=== PATIENT | female | born 1975 | race Caucasian/White ===

== ENCOUNTER → 2022-05-31 | Outpatient (CLI) | payer BC ==
[2022-05-31 13:10] VITALS: BP 94/62; PULSE 51; TEMP 98.6; BMI 41.3
--- NOTE | 2022-05-31 13:53 | P.HPBAR ---
Bariatric H&P - History & Physicial H&P Date: 05/31/22 History & Physicial: Visit/CC: new patient Patient initial contact: Initial weight: Initial weight in pounds: Height: 5 ft 5 in Initial BMI: Last weight: Current weight: 112.672 kg Current weight in pounds: 248.40 Current BMI: 41.3 [place] body weight (based on NIH guidelines): 56.699 kg Excess body weight loss: The patient is a 47 year-old F who presents for Bariatric Assessment. Has acid reflux for 2 years. She is on medications. She has friends who has the sleeve. She takes omeprazole regularly. Has SVT. Father has kidney stone. Still has her gallbladder. No blood clots in family. Past Medical History Past Medical History: Hyperlipidemia, Rheumatoid Arthritis (RA), Supraventricular Tachycardia (SVT) History of Any Multi-Drug Resistant Organisms: None Reported Past Surgical History: Uterine Ablation Additional Past Surgical History / Comment(s): Fallopian tubes removed Past Anesthesia/Blood Transfusion Reactions: No Reported Reaction Past Psychological History: Anxiety Smoking Status: Former smoker, Vaper Past Alcohol Use History: Occasional Additional Past Alcohol Use History / Comment(s): Quit cigarette smoking 1 year ago, currently vaping Past Drug Use History: None Reported Surgical - Exam Vital Signs Temp Pulse BP 98.6 F 51 L 94/62 05/31/22 13:00 05/31/22 13:00 05/31/22 13:00 Bariatric Checklist Checklist: Plan: Checklist: EGD: 1. Hiatal hernia: 2. H. Pylori: HgbA1c: Vitamin D: Smoking: Primary care physician referral: Idalia Judd NP Psychiatry clearance: Cardiology clearance: Sleep study: Diet journal: VTE risk score: VTE risk level: Rehab needs at discharge:
== END ==
LOC: BARWHC3 12:12
PROVIDERS: ATTEND Surgery Plastic and Reconstructive Surgery
DX: E66.01 Morbid (severe) obesity due to excess calories (principal); Z87.891 Personal history of nicotine dependence; E78.5 Hyperlipidemia, unspecified; M06.9 Rheumatoid arthritis, unspecified; I47.1 Supraventricular tachycardia; Z68.41 Body mass index [BMI] 40.0-44.9, adult; Z88.2 Allergy status to sulfonamides
CPT/HCPCS: 99202

== ENCOUNTER 2022-07-10 06:53 | Day surgery (SDC) | payer BC ==
[2022-07-06 14:40] VITALS: BMI 41.3
[~2022-07-10 06:53] MED LIST: LACTATED RINGERS 1,000 ML IV SCH; LIDOCAINE 1% (10MG/ML) FOR IV START INTRADERMA PRN
--- NOTE | 2022-07-10 07:03 | P.GSHP ---
History of Present Illness H&P Date: 07/10/22 CHIEF COMPLAINT: GERD HISTORY OF PRESENT ILLNESS: The patient is a 47-year-old female who presents reports gastroesophageal reflux disease. Upper endoscopy was offered for further evaluation and management. PAST MEDICAL HISTORY: Please see list. PAST SURGICAL HISTORY: Please see list. MEDICATIONS: Please see list. ALLERGIES: Please see list. SOCIAL HISTORY: No illicit drug use FAMILY HISTORY: No reports of Crohn disease or ulcerative colitis. REVIEW OF ORGAN SYSTEMS: CONSTITUTIONAL: No reports of fevers or chills. GI: Denies any blood in stools or constipation. PHYSICAL EXAM: VITAL SIGNS: Stable GENERAL: Well-developed and pleasant in no acute distress. HEENT: No scleral icterus. Extraocular movements grossly intact. Moist buccal mucosa. NECK: Supple without lymphadenopathy. CHEST: Unlabored respirations. Equal bilateral excursions. CARDIOVASCULAR: Regular rate and rhythm. Distal 2+ pulses. ABDOMEN: Soft, nondistended. MUSCULOSKELETAL: No clubbing, cyanosis, or edema. ASSESSMENT: 1. Gastroesophageal reflux disease PLAN: 1. Recommend proceeding with an upper endoscopy Past Medical History Past Medical History: Hyperlipidemia, Rheumatoid Arthritis (RA), Supraventricular Tachycardia (SVT) History of Any Multi-Drug Resistant Organisms: None Reported Past Surgical History: Uterine Ablation Additional Past Surgical History / Comment(s): Fallopian tubes removed Past Anesthesia/Blood Transfusion Reactions: No Reported Reaction Smoking Status: Current every day smoker, Vaper Medications and Allergies Home Medications Medication Instructions Recorded Confirmed Type ALPRAZolam [Xanax] 0.25 mg PO BID PRN 05/31/22 07/06/22 History Adalimumab [Humira Pen] 40 mg SQ QMONTHLY 05/31/22 07/06/22 History Cetirizine HCl [Zyrtec] 10 mg PO DAILY 05/31/22 07/06/22 History Cholecalciferol (Vitamin D3) 125 mcg PO DAILY 05/31/22 07/06/22 History [Vitamin D3 (125 MCG = 5,000 IU)] DULoxetine HCL [Cymbalta] 30 mg PO DAILY 05/31/22 07/06/22 History Ezetimibe [Zetia] 10 mg PO DAILY 05/31/22 07/06/22 History Fluticasone Nasal [place] [Flonase 2 spray EA NOSTRIL DAILY 05/31/22 07/06/22 History Nasal [place]] Furosemide [Lasix] 20 mg PO DAILY 05/31/22 07/06/22 History Omeprazole 20 mg PO DAILY 05/31/22 07/06/22 History Rosuvastatin Calcium [Crestor] 40 mg PO DAILY 05/31/22 07/06/22 History Verapamil HCl [Verapamil ER] 180 mg PO HS 05/31/22 07/06/22 History atenoloL [Tenormin] 50 mg PO DAILY 05/31/22 07/06/22 History Allergies Allergy/AdvReac Type Severity Reaction Status Date / Time Sulfa (Sulfonamide Allergy Unknown Verified 07/06/22 14:20 Antibiotics) Childhood
[2022-07-10 07:19] VITALS: TEMP 97.7
[2022-07-10] MEDS ORDERED: LIDOCAINE 2% INJ 20 MG/ML (2 ML VIAL) ONE (08:02)
[2022-07-10] MEDS ORDERED: PROPOFOL 10 MG/ML 20 ML VIAL IV ONE (08:02)
[2022-07-10 08:32] VITALS: BP 127/78; PULSE 57; RESP 18
--- NOTE | 2022-07-10 08:48 | P.PCN ---
Date of Procedure: 07/10/22 Description of Procedure: PREOPERATIVE DIAGNOSIS: Gastroesophageal reflux disease. Morbid obesity. POSTOPERATIVE DIAGNOSIS: Gastroesophageal reflux disease. Morbid obesity. Gastritis. OPERATION: Esophagogastroduodenoscopy with biopsies along antrum and duodenum SURGEON: Kelin Cabello MD ANESTHESIA: MAC. INDICATIONS: The patient is a 47-year-old female who presents with reflux disease. Benefits and risks of the procedure were described. Informed consent was obtained. DESCRIPTION: The patient was brought into the endoscopy suite and laid in the left lateral decubitus position. An Olympus gastroscope was passed along the posterior oropharynx down to the distal esophagus where the squamocolumnar junction was encountered at 36 cm from the incisors. The stomach was entered and no bile reflux was found. Additional findings are listed below. Biopsies with cold forceps were obtained of the antrum. The first through third portion of the duodenum was examined. Retroflexion of the scope confirmed Hill grade 2 lower esophageal valve. The squamocolumnar junction demonstrated LA grade B erosive esophagitis. The stomach was desufflated. The patient tolerated the procedure well. FINDINGS: Squamocolumnar junction 36 cm from the incisors. Diaphragmatic hiatus at 36 cm. Hill grade 2 lower esophageal valve. LA grade A erosive esophagitis. Biopsies of the duodenum Chronic gastritis with biopsies obtained RECOMMENDATIONS: Upper endoscopy as needed. Plan - Discharge Summary Discharge Rx Participant: No New Discharge Prescriptions: Continue Furosemide [Lasix] 20 mg PO DAILY Ezetimibe [Zetia] 10 mg PO DAILY Cetirizine HCl [Zyrtec] 10 mg PO DAILY Adalimumab [Humira Pen] 40 mg SQ QMONTHLY atenoloL [Tenormin] 50 mg PO DAILY ALPRAZolam [Xanax] 0.25 mg PO BID PRN PRN Reason: Anxiety Verapamil HCl [Verapamil ER] 180 mg PO HS Omeprazole 20 mg PO DAILY Fluticasone Nasal [place] [Flonase Nasal [place]] 2 spray EA NOSTRIL DAILY Rosuvastatin Calcium [Crestor] 40 mg PO DAILY DULoxetine HCL [Cymbalta] 30 mg PO DAILY Cholecalciferol (Vitamin D3) [Vitamin D3 (125 MCG = 5,000 IU)] 125 mcg PO DAILY Discharge Medication List ALPRAZolam [Xanax] 0.25 mg PO BID PRN 05/31/22 [History] Adalimumab [Humira Pen] 40 mg SQ QMONTHLY 05/31/22 [History] Cetirizine HCl [Zyrtec] 10 mg PO DAILY 05/31/22 [History] Cholecalciferol (Vitamin D3) [Vitamin D3 (125 MCG = 5,000 IU)] 125 mcg PO DAILY 05/31/22 [History] DULoxetine HCL [Cymbalta] 30 mg PO DAILY 05/31/22 [History] Ezetimibe [Zetia] 10 mg PO DAILY 05/31/22 [History] Fluticasone Nasal [place] [Flonase Nasal [place]] 2 spray EA NOSTRIL DAILY 05/31/22 [History] Furosemide [Lasix] 20 mg PO DAILY 05/31/22 [History] Omeprazole 20 mg PO DAILY 05/31/22 [History] Rosuvastatin Calcium [Crestor] 40 mg PO DAILY 05/31/22 [History] Verapamil HCl [Verapamil ER] 180 mg PO HS 05/31/22 [History] atenoloL [Tenormin] 50 mg PO DAILY 05/31/22 [History] Follow up [facility]ment(s[facility] [place] [facility] Patient Instructions/Handouts: *Surgery [facility] - (Anesthesia) Discharge Instructions Outpatient Surgery, Gastritis (DC), Diet for Stomach Ulcers and Ga stritis (GEN), Upper Endoscopy (DC) Discharge Disposition: HOME SELF-CARE
== END 2022-07-10 08:53 | disposition home or self-care (01) ==
LOC: ORWHC2ENDO 06:53
PROVIDERS: ATTEND Surgery Plastic and Reconstructive Surgery
DX: K21.00 Gastro-esophageal reflux disease with esophagitis, without bleeding (principal); K29.50 Unspecified chronic gastritis without bleeding; K44.9 Diaphragmatic hernia without obstruction or gangrene; E78.5 Hyperlipidemia, unspecified; M06.9 Rheumatoid arthritis, unspecified; E66.01 Morbid (severe) obesity due to excess calories; Z90.79 Acquired absence of other genital organ(s); F17.290 Nicotine dependence, other tobacco product, uncomplicated; Z79.899 Other long term (current) drug therapy; Z88.1 Allergy status to other antibiotic agents; Z88.2 Allergy status to sulfonamides; I48.91 Unspecified atrial fibrillation; F41.9 Anxiety disorder, unspecified
CPT/HCPCS: 81025; 43239; J2704; J2001; 88305

== ENCOUNTER → 2022-07-10 | Outpatient (CLI) | payer BC ==
[2022-07-10 10:19] LABS: INR 0.9 (<1.2); Partial Thromboplastin Time 24.2 sec (22.0-30.0)
[2022-07-10 16:09] LABS: HCT 41.8 %; HGB 13.1 d/dL; MCH 27.9 pg; MCHC 31.3 d/dL; MCV 88.9 FL; Mean Platelet Volume 10.4 FL; NRBC Per 100 WBC 0 X 10*3/uL; Platelet Count 290 X 10*3/uL; RDW 12.2 %; WBC 7.69 X 10*3/uL
[2022-07-10 16:17] LABS: % Iron Saturation 21.81; ALT 27 U/L; AST 18 U/L; Albumin 4.2 d/dL; Albumin/Globulin Ratio 1.75 Ratio; Alkaline Phosphatase 63 U/L; BUN/Creat Ratio 17.71 Ratio; Blood Urea Nitrogen 12.4 mg/dL; Calcium 9.1 mg/dL; Carbon Dioxide 25.9 mmol/L; Chloride 100 mmol/L; Chol/HDL Ratio 2.81 Ratio; Globulin 2.4 d/dL; Glucose 96 mg/dL; Iron 77 UG/DL; LDL Cholesterol,Calculated 84.9 mg/dL; Magnesium 2.2 mg/dL; Phosphorus 3.3 mg/dL; Potassium 4.4 mmol/L; Sodium 138 mmol/L; Total Iron Binding Capacity 353 UG/DL; Total Protein 6.6 d/dL; VLDL Calculation 13.74 mg/dL
[2022-07-10 16:44] LABS: Prealbumin 24.4 mg/dL
[2022-07-10 22:40] LABS: Ferritin 42 ng/mL
[2022-07-11 12:58] LABS: Zinc, Serum 86 ug/dL (60-130)
[2022-07-12 06:52] LABS: Vitamin A 50 ug/dL (38-106)
== END | disposition home or self-care (01) ==
LOC: LABWHC1 09:00
PROVIDERS: ATTEND Surgery Plastic and Reconstructive Surgery
DX: E66.01 Morbid (severe) obesity due to excess calories (principal); E89.1 Postprocedural hypoinsulinemia; D50.8 Other iron deficiency anemias; E44.0 Moderate protein-calorie malnutrition; E55.9 Vitamin D deficiency, unspecified; K74.1 Hepatic sclerosis; N19 Unspecified kidney failure; T56.894A Toxic effect of other metals, undetermined, initial encounter; Z71.51 Drug abuse counseling and surveillance of drug abuser
CPT/HCPCS: 36415; 80053; 80061; 80323; 82306; 82525; 82607; 82728; 82746; 83036; 83540; 83550; 83735; 83970; 84100; 84134; 84255; 84425; 84443; 84590; 84630; 85027; 85610; 85730; 93005

== ENCOUNTER → 2022-07-31 | Outpatient (CLI) | payer BC ==
[2022-07-31 11:19] VITALS: BMI 43.7
== END ==
LOC: BARWHC3 08:22
PROVIDERS: ATTEND Surgery Plastic and Reconstructive Surgery
DX: E66.01 Morbid (severe) obesity due to excess calories (principal); Z68.41 Body mass index [BMI] 40.0-44.9, adult; Z71.3 Dietary counseling and surveillance; Z88.2 Allergy status to sulfonamides
CPT/HCPCS: 97804

== ENCOUNTER → 2022-09-27 | Outpatient (CLI) | payer BC ==
[2022-09-27 19:42] LABS: Basophils # (A) 0.04 X 10*3/uL (0.00-0.10); Basophils % (A) 0.5 %; Eosinophils # (A) 0.16 X 10*3/uL (0.04-0.35); Eosinophils % (A) 1.8 %; HCT 43.6 % (37.2-46.3); HGB 13.7 d/dL (12.0-15.0); Lymphocytes # (A) 3.96 X 10*3/uL (0.90-5.00); Lymphocytes % (A) 45.4 %; MCH 27.8 pg (27.0-32.0); MCHC 31.4 d/dL (32.0-37.0); MCV 88.6 FL (80.0-97.0); Mean Platelet Volume 10.4 FL (9.5-12.2); Monocytes # (A) 0.82 X 10*3/uL (0.20-1.00); Monocytes % (A) 9.4 %; NRBC Per 100 WBC 0 X 10*3/uL (0.00-0.01); Neutrophils # (A) 3.72 X 10*3/uL (1.80-7.70); Neutrophils % (A) 42.7 %; Platelet Count 298 X 10*3/uL (140-440); RBC 4.92 X 10*6/uL (4.10-5.20); RDW 12.6 % (11.5-14.5); WBC 8.72 X 10*3/uL (4.50-10.00)
[2022-09-27 20:02] LABS: ALT 36 U/L (8-44); AST 28 U/L (13-35); Albumin 4.3 d/dL (3.8-4.9); Albumin/Globulin Ratio 1.79 Ratio (1.60-3.17); Alkaline Phosphatase 53 U/L (41-126); BUN/Creat Ratio 20.88 Ratio (12.00-20.00); Blood Urea Nitrogen 16.7 mg/dL (9.0-27.0); Calcium 9.4 mg/dL (8.7-10.3); Carbon Dioxide 25.8 mmol/L (21.6-31.8); Chloride 103 mmol/L (96-109); Globulin 2.4 d/dL (1.6-3.3); Glucose 79 mg/dL (70-110); Sodium 139 mmol/L (135-145); Total Bilirubin 0.8 mg/dL (0.3-1.2); Total Protein 6.7 d/dL (6.2-8.2)
== END | disposition home or self-care (01) ==
LOC: LABPAT 12:49
PROVIDERS: ATTEND Surgery Plastic and Reconstructive Surgery
DX: Z01.812 Encounter for preprocedural laboratory examination (principal); Z71.51 Drug abuse counseling and surveillance of drug abuser
CPT/HCPCS: 80053; 80323; 85025

== ENCOUNTER 2022-10-02 12:15 | Day surgery (SDC) | payer BC ==
--- NOTE | 2022-10-02 09:09 | P.GSHP ---
History of Present Illness H&P Date: 10/02/22 CHIEF COMPLAINT: Morbid obesity HISTORY OF PRESENT ILLNESS: Jackelin Slater is a 47-year-old female who comes with lifelong morbid obesity. As result of morbid obesity, she has developed hypertensive heart disease, hyperlipidemia, osteoarthritis of the hips and knees. She has completed medical supervised weight loss. She completed medical including cardiac assessment. She has completed psychological risk assessment. All surgical options were reviewed. She elected for sleeve gastrectomy At height of 5 feet 5 inches, her ideal body weight is 149 pounds. She comes in 262 pounds. Her body mass index is 44.1. She is 113 pounds overweight. PAST MEDICAL HISTORY: 1. Morbid obesity due to excess calories 2. Body mass index of 44.1 3. Osteoarthritis of the knees. 4. Osteoarthritis of the lower back. 5. Hypertensive heart disease. 6. Gastroesophageal reflux disease 7. Depressive disorder 8. Rheumatoid arthritis 9. Hyperlipidemia 10. Generalized anxiety disorder 11. Supraventricular tachycardia PAST SURGICAL HISTORY: 1. Upper endoscopy 2. Uterine ablation HOME MEDICATIONS: See list ALLERGIES: See list SOCIAL HISTORY: Past tobacco use. FAMILY HISTORY: No family history of ulcerative colitis disease or Crohn's disease. Family history of morbid obesity. No lupus in the family. No reports of stomach or esophageal cancer. REVIEW OF ORGAN SYSTEMS: CONSTITUTIONAL: At height of 5 feet 5 inches, her ideal body weight is 149 pounds. She comes in 262 pounds. Her body mass index is 44.1. She is 113 pounds overweight. HEENT: Denies any active troubles with vision or hearing. ENDOCRINE: Denies diabetes. Denies hypothyroidism. CARDIOVASCULAR: Past reports of palpitations or heart attacks or chest pain. RESPIRATORY: Has daytime somnolence. GASTROINTESTINAL: Denies any bright red blood per rectum. Has gastroesophageal reflux disease. MUSCULOSKELETAL: Has lower back pain and joint pain. Has osteoarthritis of the knees. NEURO: No headaches. No seizure disorders. PSYCH: Has depression. No suicidal ideation. Has anxiety disorder RHEUMATOLOGIC: No lupus. No rheumatoid arthritis. HEMATOLOGIC: Denies any abnormal bleeding or bruising. No personal history of DVTs. SKIN: Has rash. No skin cancer. PHYSICAL EXAM: VITAL SIGNS: Height 5 foot 3.75 inches, weight 219 pounds. BMI 38.0 GENERAL: Well-developed in no acute distress. HEENT: No scleral icterus. Extraocular movements grossly intact. Hears conversational speech. No nasal drainage. NECK: Supple without lymphadenopathy. CHEST: Nonlabored respirations with equal bilateral excursions. CARDIOVASCULAR: Regular rate and regular rhythm. Distal 2+ pulses. ABDOMEN: Obese, soft, nontender, nondistended. MUSCULOSKELETAL: No clubbing, cyanosis. NEURO: No focal or lateralizing signs. Cranial nerves 2 through 12 grossly within normal limits. PSYCH: Appropriate affect. Alert and oriented to person, place and time. SKIN: Good skin turgor. Well perfused. ASSESSMENT: 1. Morbid obesity due to excess calories 2. Body mass index of 44.1 3. Osteoarthritis of the knees. 4. Osteoarthritis of the lower back. 5. Hypertensive heart disease. 6. Gastroesophageal reflux disease 7. Depressive disorder 8. Rheumatoid arthritis 9. Hyperlipidemia 10. Generalized anxiety disorder 11. Supraventricular tachycardia PLAN: 1. Bariatric options between a sleeve, band and a Gwendolyn-en-Y gastric bypass were reviewed in detail. The patient elected for a sleeve gastrectomy. Robotic assisted approach described. 2. The [place] [facility] Data was also reviewed with benefits and risks as described. 3. An 8 page second-generation bariatric consent form was reviewed in detail including potential of bleeding, infection, leaks, adequate weight loss, nutritional deficiencies which the patient demonstrated understanding of the risks. 4. A 2 week high-protein low caloric 800 kcal diet described to address hepatomegaly. 5. Preoperative labs including complete metabolic panel and CBC with type and screen recommended. 6. DVT prophylaxis per [place] [facility]. 7. Antibiotic prophylaxis. 8. Inpatient hospitalization anticipated for more than 2 nights. 9. All questions and concerns were addressed with the patient. 10. The patient is at elevated risk for perioperative complications with sleep apnea and hypertensive heart disease. 11. Overall, patient has expressed understanding of bariatric care including postoperative diet and commitment of lifestyle. Patient should benefit from surgical intervention for correction of morbid obesity. 12. She is elevated risk due to pre-existing comorbid conditions Past Medical History Past Medical History: GERD/Reflux, Hyperlipidemia, Rheumatoid Arthritis (RA), Supraventricular Tachycardia (SVT) History of Any Multi-Drug Resistant Organisms: None Reported Past Surgical History: Uterine Ablation Additional Past Surgical History / Comment(s): Fallopian tubes removed,malika cataracts Past Anesthesia/Blood Transfusion Reactions: No Reported Reaction Additional Past Anesthesia/Blood Transfusion Reaction / Comment(s): no hx blood transfusion Smoking Status: Current every day smoker, Vaper - Past Family History Mother Family Medical History: No Reported History Medications and Allergies Home Medications Medication Instructions Recorded Confirmed Type ALPRAZolam [Xanax] 0.25 mg PO BID PRN 05/31/22 09/25/22 History Adalimumab [Humira Pen] 40 mg SQ QMONTHLY 05/31/22 09/25/22 History Cetirizine HCl [Zyrtec] 10 mg PO DAILY 05/31/22 09/25/22 History Cholecalciferol (Vitamin D3) 125 mcg PO DAILY 05/31/22 09/25/22 History [Vitamin D3 (125 MCG = 5,000 IU)] DULoxetine HCL [Cymbalta] 30 mg PO QAM 05/31/22 09/25/22 History Ezetimibe [Zetia] 10 mg PO DAILY 05/31/22 09/25/22 History Fluticasone Nasal [place] [Flonase 2 spray EA NOSTRIL DAILY PRN 05/31/22 09/25/22 History Nasal [place]] Furosemide [Lasix] 20 mg PO DAILY 05/31/22 09/25/22 History Omeprazole 20 mg PO QAM 05/31/22 09/25/22 History Rosuvastatin Calcium [Crestor] 40 mg PO DAILY 05/31/22 09/25/22 History Verapamil HCl [Verapamil ER] 180 mg PO HS 05/31/22 09/25/22 History atenoloL [Tenormin] 50 mg PO QAM 05/31/22 09/25/22 History Allergies Allergy/AdvReac Type Severity Reaction Status Date / Time Sulfa (Sulfonamide Allergy Unknown Verified 09/25/22 09:51 Antibiotics) Childhood
[~2022-10-02 12:15] MED LIST changes: +ACETAMINOPHEN TAB 500 MG TAB PO PRN; +ALVIMOPAN 12 MG CAPSULE PO PRN; +CHLORHEXIDINE GLUCONATE 15 ML CUP MUCOUS MEM PRN; +ENOXAPARIN 40 MG/0.4 ML SYRINGE SQ PRN; -LACTATED RINGERS 1,000 ML IV SCH; -LIDOCAINE 1% (10MG/ML) FOR IV START INTRADERMA PRN; +ONDANSETRON 4 MG/2 ML VIAL IVP PRN; +PANTOPRAZOLE 40 MG/10 ML VIAL IVP PRN; +ceFAZolin 3 GM in SODIUM CHLORIDE 0.9% 100 ML IVPB PRN; +droPERidol 5 MG/2 ML VIAL IVP ONE
[2022-10-02] MEDS ORDERED: LACTATED RINGERS 1,000 ML IV SCH (12:37)
[2022-10-02] MEDS ORDERED: DEXAMETHASONE SOD PHOSPHATE 4 MG/ML 1 ML VIAL IVP ONE (13:24)
[2022-10-02 14:54] LABS: ALT 36 U/L (4-34); AST 31 U/L (14-36); African American GFR (CKD) >90 (>60 ml/min/1.73 sqM); Albumin 3.7 g/dL (3.5-5.0); Alkaline Phosphatase 56 U/L (38-126); Anion Gap 8 mmol/L; Blood Urea Nitrogen 12 mg/dL (7-17); Carbon Dioxide 24 mmol/L (22-30); Chloride 105 mmol/L (98-107); Glucose 71 mg/dL (74-99); Non-African American GFR(CKD) >90 (>60 ml/min/1.73 sqM); Potassium 4.2 mmol/L (3.5-5.1); Sodium 137 mmol/L (137-145); Total Bilirubin 1.2 mg/dL (0.2-1.3); Total Protein 6.7 g/dL (6.3-8.2)
[2022-10-02] MEDS ORDERED: NEOSTIGMINE 1 MG/ML 10 ML VIAL ONE (15:17)
[2022-10-02] MEDS ORDERED: ROCURONIUM 10 MG/ML (5 ML VIAL) IV ONE (15:17)
[2022-10-02] MEDS ORDERED: SUCCINYLCHOLINE CHLORIDE 200 MG/10 ML VIAL IV ONE (15:17)
[2022-10-02] MEDS ORDERED: GLYCOPYRROLATE 0.2 MG/ML 2 ML VIAL ONE (15:17)
[2022-10-02] MEDS ORDERED: LIDOCAINE 2% INJ 20 MG/ML (2 ML VIAL) ONE (15:17)
[2022-10-02] MEDS ORDERED: PROPOFOL 10 MG/ML 20 ML VIAL IV ONE (15:17)
[2022-10-02] MEDS ORDERED: HYDROmorphone (PF) 1 MG/ML ONE (15:17)
[2022-10-02] MEDS ORDERED: fentaNYL (PF) 50 MCG/ML 2 ML AMP ONE (15:17)
[2022-10-02] MEDS ORDERED: MIDAZOLAM 2 MG/2 ML VIAL ONE (15:17)
[2022-10-02] MEDS ORDERED: LACTATED RINGERS 1,000 ML IV ONE ×2 (15:52)
[2022-10-02] MEDS ORDERED: LIDOCAINE 0.5%-EPI 1:200,000 50 ML VIAL SQ ONE (16:14)
[2022-10-02] MEDS ORDERED: NALOXONE 0.4 MG/ML 1 ML VIAL IV PRN (17:05)
[2022-10-02] MEDS ORDERED: diphenhydrAMINE 50 MG/ML 1 ML VIAL IVP PRN (17:05)
[2022-10-02] MEDS ORDERED: HYDROmorphone 1 MG/ML 1 ML SYRINGE IVP PRN (17:05)
[2022-10-02] MEDS ORDERED: FLUTICASONE 50MCG/SPRAY NASAL 16GM EA NOSTRIL PRN (17:09)
[2022-10-02] MEDS ORDERED: HYDROmorphone 0.5 MG/0.5 ML SYRINGE IVP ONE ×2 (17:33→18:03)
[2022-10-02] MEDS: SODIUM CHLORIDE 0.9% 2,000 ML IV ONE ×3 (17:48→18:48)
[2022-10-02] MEDS ORDERED: DEXAMETHASONE SOD PHOSPHATE 10 MG/ML 1 ML VIAL IVP ONE (20:00)
[2022-10-02] MEDS ORDERED: VERAPAMIL SR 180 MG TABLET.ER PO SCH (21:00)
[2022-10-02] MEDS: ONDANSETRON 4 MG/2 ML VIAL IVP SCH (22:00)
[2022-10-02] MEDS: ALBUTEROL NEBULIZED 2.5 MG/3 ML INHALATION SCH (22:04)
[2022-10-02] MEDS: HYOSCYAMINE ORAL DROPS 1.875 MG/15 ML BOTTLE PO SCH (22:08)
[2022-10-02] MEDS: SIMETHICONE 80 MG CHEWABLE PO SCH (22:08)
[2022-10-02] MEDS: ACETAMINOPHEN IV (For NPO) 1,000 MG in EMPTY BAG 1 BAG IVPB SCH (22:09)
[2022-10-02] MEDS: 0.9% NACL WITH KCL 20 MEQ/L 1,000 ML IV SCH (22:10)
[2022-10-02] MEDS: PANTOPRAZOLE 40 MG/10 ML VIAL IV SCH (22:10)
[2022-10-02] MEDS ORDERED: ceFAZolin 3 GM in SODIUM CHLORIDE 0.9% 100 ML IVPB SCH (23:00)
[2022-10-03] MEDS: DEXAMETHASONE SOD PHOSPHATE 4 MG/ML 1 ML VIAL IVP SCH ×3 (01:05→11:34)
[2022-10-03] MEDS: ONDANSETRON 4 MG/2 ML VIAL IVP SCH ×3 (01:05→11:34)
[2022-10-03] MEDS: SIMETHICONE 80 MG CHEWABLE PO SCH ×3 (01:05→11:34)
[2022-10-03] MEDS: HYOSCYAMINE ORAL DROPS 1.875 MG/15 ML BOTTLE PO SCH ×3 (01:06→11:35)
[2022-10-03] MEDS: 0.9% NACL WITH KCL 20 MEQ/L 1,000 ML IV SCH (03:20)
[2022-10-03] MEDS: ACETAMINOPHEN IV (For NPO) 1,000 MG in EMPTY BAG 1 BAG IVPB SCH ×2 (03:24→08:09)
[2022-10-03 06:11] VITALS: RESP 14
[2022-10-03 07:29] LABS: Basophils % (A) 0 %; Eosinophils % (A) 0 %; HCT 42.1 % (34.0-46.0); HGB 13.6 gm/dL (11.4-16.0); Lymphocytes # (A) 1.4 k/uL (1.0-4.8); Lymphocytes % (A) 21 %; MCH 28.1 pg (25.0-35.0); MCHC 32.2 g/dL (31.0-37.0); MCV 87.3 fL (80.0-100.0); Mean Platelet Volume 8.1; Monocytes # (A) 0.1 k/uL (0-1.0); Monocytes % (A) 1 %; Neutrophils # (A) 5.1 k/uL (1.3-7.7); Neutrophils % (A) 77 %; Platelet Count 304 k/uL (150-450); RBC 4.82 m/uL (3.80-5.40); RDW 12.8 % (11.5-15.5); WBC 6.6 k/uL (3.8-10.6)
[2022-10-03 07:44] LABS: African American GFR (CKD) >90 (>60 ml/min/1.73 sqM); Anion Gap 11 mmol/L; Blood Urea Nitrogen 8 mg/dL (7-17); Calcium 8.2 mg/dL (8.4-10.2); Carbon Dioxide 15 mmol/L (22-30); Chloride 108 mmol/L (98-107); Magnesium 1.9 mg/dL (1.6-2.3); Non-African American GFR(CKD) >90 (>60 ml/min/1.73 sqM); Potassium 4.8 mmol/L (3.5-5.1); Sodium 134 mmol/L (137-145)
[2022-10-03] MEDS ORDERED: 0.9% NACL WITH KCL 20 MEQ/L 1,000 ML IV SCH (08:00)
[2022-10-03] MEDS: PANTOPRAZOLE 40 MG/10 ML VIAL IV SCH (08:08)
[2022-10-03] MEDS: ALBUTEROL NEBULIZED 2.5 MG/3 ML INHALATION SCH ×2 (08:21→12:22)
[2022-10-03] MEDS ORDERED: ENOXAPARIN 40 MG/0.4 ML SYRINGE SQ SCH (09:00)
[2022-10-03] MEDS ORDERED: LORATADINE 10 MG TAB PO SCH (09:00)
[2022-10-03] MEDS ORDERED: atenoloL 50 MG TAB PO SCH (09:00)
--- NOTE | 2022-10-03 09:35 | FL ---
EXAMINATION TYPE: FL UGI DATE OF EXAM: 10/03/2022 CLINICAL HISTORY: Status post gastric sleeve Contrast: Omnipaque 350 50 mL The patient ingested contrast without difficulty or delay. Noted are postsurgical changes of gastric sleeve. There is no evidence for leak or obstruction. Contrast is noted within the duodenum. IMPRESSION: Post-surgical change of gastric sleeve without evidence for obstruction or leak at this point in time.
[2022-10-03 11:07] VITALS: BMI 43.4
--- NOTE | 2022-10-03 15:20 | P.DS ---
Providers Expected date of discharge: 10/03/22 Attending physician: Kelin Cabello Primary care physician: Jel[facility] Course: Discharge diagnosis 1. Morbid obesity due to excess calories 2. Body mass index of 44.1 3. Osteoarthritis of the knees. 4. Osteoarthritis of the lower back. 5. Hypertensive heart disease. 6. Gastroesophageal reflux disease 7. Depressive disorder 8. Rheumatoid arthritis 9. Hyperlipidemia 10. Generalized anxiety disorder 11. Supraventricular tachycardia 12. Carbon dioxide level low at 15. Repeat lab outpatient at Bariatric center Hospital course This is a 47-year-old female with a known history of morbid obesity. She status post robotic laparoscopic sleeve gastrectomy. Patient tolerated surgery well. Upper GI shows no evidence of leak or obstruction. She's tolerating diet. Her pain is controlled. She has been up and ambulating. She is afebrile. She is stable for discharge. Physician [employer] note has been reviewed by physician. Signing provider agrees with the documented findings, assessment, and plan of care. Patient Condition at Discharge: Stable Plan - Discharge Summary Discharge Rx Participant: Yes New Discharge Prescriptions: New bisacodyL [Dulcolax] 5 mg PO DAILY PRN #10 tab PRN Reason: Constipation Simethicone 40 mg/0.6 ml Drops [Mylicon Drops] 40 mg PO PCHS PRN #30 ml PRN Reason: Gas Ondansetron Odt [Zofran Odt] 4 mg PO Q8HR PRN #9 tab PRN Reason: Nausea Hyoscyamine Oral Drops [Levsin Drops] 0.125 mg PO Q6HR ml Omeprazole [PriLOSEC] 40 mg PO DAILY #30 cap Acetaminophen Tab [Tylenol] 1,000 mg PO Q6HR PRN #30 tablet PRN Reason: Pain Continue Cetirizine HCl [Zyrtec] 10 mg PO DAILY Adalimumab [Humira Pen] 40 mg SQ QMONTHLY atenoloL [Tenormin] 50 mg PO QAM ALPRAZolam [Xanax] 0.25 mg PO BID PRN PRN Reason: Anxiety Verapamil HCl [Verapamil ER] 180 mg PO HS Fluticasone Nasal [place] [Flonase Nasal [place]] 2 spray EA NOSTRIL DAILY PRN PRN Reason: Congestion DULoxetine HCL [Cymbalta] 30 mg PO HS Discontinued Furosemide [Lasix] 20 mg PO DAILY Ezetimibe [Zetia] 10 mg PO DAILY Omeprazole 20 mg PO QAM Rosuvastatin Calcium [Crestor] 40 mg PO DAILY Cholecalciferol (Vitamin D3) [Vitamin D3 (125 MCG = 5,000 IU)] 125 mcg PO DAILY Discharge Medication List ALPRAZolam [Xanax] 0.25 mg PO BID PRN 05/31/22 [History] Adalimumab [Humira Pen] 40 mg SQ QMONTHLY 05/31/22 [History] Cetirizine HCl [Zyrtec] 10 mg PO DAILY 05/31/22 [History] DULoxetine HCL [Cymbalta] 30 mg PO HS 05/31/22 [History] Fluticasone Nasal [place] [Flonase Nasal [place]] 2 spray EA NOSTRIL DAILY PRN 05/31/22 [History] Verapamil HCl [Verapamil ER] 180 mg PO HS 05/31/22 [History] atenoloL [Tenormin] 50 mg PO QAM 05/31/22 [History] Acetaminophen Tab [Tylenol] 1,000 mg PO Q6HR PRN #30 tablet 10/03/22 [Rx] Hyoscyamine Oral Drops [Levsin Drops] 0.125 mg PO Q6HR ml 10/03/22 [Rx] Omeprazole [PriLOSEC] 40 mg PO DAILY #30 cap 10/03/22 [Rx] Ondansetron Odt [Zofran Odt] 4 mg PO Q8HR PRN #9 tab 10/03/22 [Rx] Simethicone 40 mg/0.6 ml Drops [Mylicon Drops] 40 mg PO PCHS PRN #30 ml 10/03/22 [Rx] bisacodyL [Dulcolax] 5 mg PO DAILY PRN #10 tab 10/03/22 [Rx] Follow up Appointment(s)/Ref[facility](s[facility] [place] [place] [facility] - 10/06/22 9:00 am Patient Instructions/Handouts: Nutrition after Bariatric Surgery (DC), Nutrition after Bariatric Surgery (GEN), Laparoscopic Sleeve Gastrectomy (DC), Laparoscopic Sleeve Gastrectomy (GEN) Activity/Diet/Wound Care/Special Instructions: Liquid diet only for 2 weeks No lifting over 4 pounds in 4 weeks May Shower. No soaking in bath tubs for 2 weeks Please notify your surgeon if you develop nausea and vomiting including new onset of abdominal pain. Continue to use incentive spirometry to prevent pneumonias. Please continue to ambulate at home to prevent blood clots in legs. Follow-up at the bariatric center. May shower. Dressings to be discontinued by surgeon in the office. Drink 64 oz of fluid daily. Start protein shakes on . Notify bariatric center for temp over 101.0, increased pain, drainage from incisions. No straws or carbonated beverages. Liquid diet only. Sugar content should be less than 6 g to avoid dumping syndrome. Take MOM for constipation. CRUSH, OPEN, OR CUT TABLETS LARGER THAN A SIZE OF A TIC TAC Discharge Disposition: HOME SELF-CARE
[2022-10-03 15:49] VITALS: BP 95/61; PULSE 73; TEMP 98.5
--- NOTE | 2022-10-18 21:01 | P.OP ---
Date of Procedure: 10/02/22 Description of Procedure: SURGEON: MARLENY ESQUIVEL MD PREOPERATIVE DIAGNOSES: 1. Morbid obesity due to excess calories 2. Body mass index of 44.1 3. Osteoarthritis of the knees. 4. Osteoarthritis of the lower back. 5. Hypertensive heart disease. 6. Gastroesophageal reflux disease 7. Depressive disorder 8. Rheumatoid arthritis 9. Hyperlipidemia 10. Generalized anxiety disorder 11. Supraventricular tachycardia POSTOPERATIVE DIAGNOSES: 1. Morbid obesity due to excess calories 2. Body mass index of 44.1 3. Osteoarthritis of the knees. 4. Osteoarthritis of the lower back. 5. Hypertensive heart disease. 6. Gastroesophageal reflux disease 7. Depressive disorder 8. Rheumatoid arthritis 9. Hyperlipidemia 10. Generalized anxiety disorder 11. Supraventricular tachycardia OPERATION: 1. Robotic assisted daVinci Xi laparoscopic sleeve gastrectomy with 40-Colombian bougie, multiport. 2. Intraoperative esophagogastroduodenoscopy. ANESTHESIA: Gen. local anesthetic ESTIMATED BLOOD LOSS: 5 mL SPECIMENS REMOVED: Sleeve gastrectomy COMPLICATIONS: None. FINDINGS: 1. Negative intraoperative esophagogastrojejunoscopy leak test. 2. No hepatomegaly and no large hiatus hernia. 3. Total of 7 staplers used including 2 - 60 mm green robot dru and 5 - 60 mm blue robot loads used to create the gastric sleeve. 4. Sleeve gastrectomy, 28 x 4 cm INDICATIONS: Jackelin Slater is a 47-year-old female who comes with lifelong morbid obesity. As result of morbid obesity, she has developed hypertensive heart disease, hyperlipidemia, osteoarthritis of the hips and knees. She has completed medical supervised weight loss. She completed medical including cardiac assessment. She has completed psychological risk assessment. All surgical options were reviewed. She elected for sleeve gastrectomy At height of 5 feet 5 inches, her ideal body weight is 149 pounds. She comes in 262 pounds. Her body mass index is 44.1. She is 113 pounds overweight. All surgical options for morbid obesity had been described using the [place] bariatric surgery collaborative comorbidity resolution including complication risk score. A second-generation bariatric consent form was described in detail including the possibility of protein malnutrition, leaks, gastric stricture, venous thrombosis, gastroesophageal reflux disease, need for further surgery for which she demonstrated understanding. Benefits and risks of the procedure were described at length. Informed consent was obtained. DESCRIPTION: The patient was brought into the operating room theater. Preoperatively she had received Lovenox subcutaneously for DVT prophylaxis. Additionally she had Peridex oral s olution as an oral decontaminant. After general induction, the abdomen was prepped and draped in standard sterile fashion. An Ioban draping was placed along the abdomen. A robotic da [place] Xi system was prepped and primed. At 15 cm from the xiphoid, proposed port sites were marked with indelible marker along the anterior axillary line bilaterally, mid axillary line bilaterally with each ports were marked 10 to 15 cm from each other. The robotic stapler port was marked for the right midclavicular line. A 5 mm 0 degrees laparoscopic trocar entry was performed along the left upper quadrant. The abdomen was insufflated to 15 mmHg pressure was tolerated well. Diagnostic laparoscopy demonstrated no injury to bowel, viscera, or mesentery. No evidence of large hiatus hernia was identified. The liver edge was sharp consistent with 2 week low-carb high-protein diet. A 8 mm port was placed along the left upper abdominal wall after exchanging the 5 mm port. A separate 8 mm port was placed along the left lateral abdominal wall. Please note that the ports were placed at least 20 cm away from the target anatomy. Care was taken to check each robotic arms were safely away from duane ion with the bed or the patient. At the epigastrium, a medium sized Camron liver retractor was placed under direct visualization with the Iron General Accountant placed under the right shoulder of the patient. Next, 12-mm robot stapler port was placed along the right upper quadrant. The camera 8-mm port was maintained along the epigastrium. The patient was repositioned in reverse Trendelenburg position at 21-degrees after lowering the bed. The robot was docked along the left side of the patient. Using a grasper for arm 4, a vessel sealer for arm 3, including grasper for arm 1, the robotic system was docked and primed as described. Instruments were interchanged by the aquatics assistant department head for stapler loads. The camera was placed at 30- degrees down. I had sat at the console. The pylorus was identified and 6 cm proximally along the greater curvature of the stomach, the short gastrics were mobilized upwards to the angle of His using a vessel sealer. Hemostasis was excellent during this portion of the procedure. Next, the upper pole of the stomach was adherent to the left adam, which was gently dissected free using atraumatic grasper. I went to the head of the bed and placed 40-Colombian blunt bougie into the stomach. The bougie was readjusted by the nurse landscaper helper. Robotic stapler green load 60 mm 2 followed by blue 60 mm x 5 loads were used to create the sleeve. Initial firing was across the antrum of the stomach towards the angle of His. The staple line was linear without corkscrewing. The space from the angularis incisura of the sleeve was approximately 4 cm. I then went to the head of the bed to perform the intraoperative esophagogastroduodenoscopy leak test. The bougie was withdrawn. The upper pole of the stomach was bathed using normal saline solution. The scope was withdrawn with careful inspection along the staple line for which no leaks were found along the entire length. Additionally,the sleeve was completely hemostatic without any encroachment along the angularis incisura. Its topology was a soft "J". No stricture was encountered upon placement of the scope. The GI tract was desufflated. The patient tolerated this portion of the procedure well. The scope was completely withdrawn. The robot was undocked. I then rescrubbed into case, whereby the irrigation fluid was aspirated from the abdominal cavity. Tisseel fibrin sealant was placed along the entire staple length. Once dried the Camron liver retractor was removed. Attention was now brought to removal of the specimen. The distal end of the sleeve gastrectomy specimen was brought out through the 12 mm port at the left upper quadrant. The specimen was gently removed en total. No contamination had occurred during this process. All instruments and pneumoperitoneum including irrigation fluid was removed from the abdominal cavity. The 12 mm port site was closed using 0-Vicryl and Wilmar Block and irrigated with diluted hydrogen peroxide. The final incisions were closed using subcuticular interrupted suture of 4-0 Monocryl. Exofin was applied to the skin once the skin had been cleansed. OptiFoam dressing was placed along the stomach extraction site. The sleeve specimen was measured and checked also for leaks which none were found. At the end of the procedure, needle, sponge, and instrument count was verified correct by the video game repair technician. The patient was taken to the postanesthesia care unit in stable condition. She had tolerated the procedure well. Intraoperative films and findings were reviewed with the patient's family.
== END 2022-10-03 16:26 | disposition home or self-care (01) ==
LOC: OR 12:15 → 4SSUR 16:55 → OR 10-03 16:26
PROVIDERS: ATTEND Surgery Plastic and Reconstructive Surgery
DX: M06.9 Rheumatoid arthritis, unspecified (principal); E66.01 Morbid (severe) obesity due to excess calories; I47.1 Supraventricular tachycardia; E78.5 Hyperlipidemia, unspecified; Z68.41 Body mass index [BMI] 40.0-44.9, adult; F41.1 Generalized anxiety disorder; K21.9 Gastro-esophageal reflux disease without esophagitis; I11.9 Hypertensive heart disease without heart failure; M16.0 Bilateral primary osteoarthritis of hip; F32.A Depression, unspecified; Z83.49 Family history of other endocrine, nutritional and metabolic diseases; F17.200 Nicotine dependence, unspecified, uncomplicated; Z88.1 Allergy status to other antibiotic agents; M17.0 Bilateral primary osteoarthritis of knee; Z90.79 Acquired absence of other genital organ(s); Z88.2 Allergy status to sulfonamides; Z98.84 Bariatric surgery status
CPT/HCPCS: 43775; S2900; 74240; 80051; 80053; 81025; 82310; 82565; 83735; 84100; 84520; 85025; 86850; 86900; 86901; 88307; 94640; 94760

== ENCOUNTER → 2022-10-06 | Outpatient (CLI) | payer BC ==
[2022-10-06 09:34] VITALS: BP 103/68; PULSE 47; TEMP 98.1; BMI 42.4
--- NOTE | 2022-10-06 10:23 | P.BASOAP ---
Subjective Progress Note Date: 10/06/22 Patient is status post sleeve gastrectomy. No complaints. Incisions without infection. Clinically doing very well. Follow-up bariatric Center 1 week nurse visit. Protein shake diet advised. Wound care instructions including antibacterial soap and hydrogen peroxide reinforced. Pain management with n onnarcotics and Tylenol advised. May drive. Objective - Vital Signs Vital signs: Vital Signs Temp 98.1 F 10/06/22 09:31 Pulse 47 L 10/06/22 09:31 Resp BP 103/68 10/06/22 09:31 Pulse Ox FiO2 Intake & Output 10/05/22 10/06/22 10/06/22 18:59 06:59 18:59 Weight 115.666 kg Assessment/Plan Plan: Date: 10/06/22 Initial Weight: Initial BMI: Current Weight: 115.666 kg Current BMI: 42.4 Type of Surgery: Total Volume in Band: Previous Volume: Volume Removed: Volume Added: Band Size:
== END ==
LOC: BARWHC3 08:49
PROVIDERS: ATTEND Surgery Plastic and Reconstructive Surgery
DX: Z53.9 Procedure and treatment not carried out, unspecified reason (principal)
CPT/HCPCS: 99211

== ENCOUNTER → 2022-10-11 | Outpatient (CLI) | payer BC ==
[2022-10-11 14:41] VITALS: BMI 41.8
[2022-10-11 14:46] VITALS: BP 104/72; PULSE 79; TEMP 97.9
== END ==
LOC: BARWHC3 14:12
PROVIDERS: ATTEND Surgery Plastic and Reconstructive Surgery
DX: Z53.9 Procedure and treatment not carried out, unspecified reason (principal)
CPT/HCPCS: 97802; 99211

== ENCOUNTER → 2022-11-15 | Outpatient (CLI) | payer BC ==
[2022-11-15 13:08] VITALS: BP 111/69; PULSE 62; TEMP 97.7; BMI 39.4
--- NOTE | 2022-11-15 13:31 | P.BASOAP ---
Subjective Progress Note Date: 11/15/22 She is 1 month out. She reports recurrent heartburn after 2 days. She requires heartburn medications. No food is getting stuff. Appetite is low. She reports hunger pains and then she stops eating. Incisions are healed. No hernia. Her medications are unchanged. She is due for labs. She is on atenolon and verapamil for her SVT. She has stopped her crestor and cholesterol medications. No further water. She is due for labs. No restriction after 4 weeks. FU 3 months post op. She went to for dehydration. She had COVID. Objective - Vital Signs Vital signs: Vital Signs Temp 97.7 F 11/15/22 12:52 Pulse 62 11/15/22 12:52 Resp BP 111/69 11/15/22 12:52 Pulse Ox FiO2 Intake & Output 11/14/22 11/15/22 11/15/22 18:59 06:59 18:59 Weight 107.32 kg Assessment/Plan Plan: Date: 11/15/22 Initial Weight: Initial BMI: Current Weight: 107.32 kg Current BMI: 39.4 Type of Surgery: Total Volume in Band: Previous Volume: Volume Removed: Volume Added: Band Size:
[2022-11-15 15:09] LABS: Partial Thromboplastin Time 23.1 sec (22.0-30.0); Prothrombin Time 10.3 sec (9.0-12.0)
[2022-11-15 19:45] LABS: HCT 43.7 % (37.2-46.3); HGB 13.8 d/dL (12.0-15.0); MCH 27.7 pg (27.0-32.0); MCHC 31.6 d/dL (32.0-37.0); MCV 87.6 FL (80.0-97.0); Mean Platelet Volume 11.1 FL (9.5-12.2); NRBC Per 100 WBC 0 X 10*3/uL (0.00-0.01); Platelet Count 327 X 10*3/uL (140-440); RBC 4.99 X 10*6/uL (4.10-5.20); RDW 14.2 % (11.5-14.5)
[2022-11-15 23:40] LABS: % Iron Saturation 27.52 (12.00-45.00); ALT 21 U/L (8-44); AST 19 U/L (13-35); Albumin 3.8 d/dL (3.8-4.9); Albumin/Globulin Ratio 1.52 Ratio (1.60-3.17); Alkaline Phosphatase 61 U/L (41-126); Blood Urea Nitrogen 15.6 mg/dL (9.0-27.0); Calcium 9.6 mg/dL (8.7-10.3); Carbon Dioxide 24.3 mmol/L (21.6-31.8); Chloride 104 mmol/L (96-109); Chol/HDL Ratio 8.25 Ratio; Globulin 2.5 d/dL (1.6-3.3); Glucose 95 mg/dL (70-110); Iron 71 UG/DL (50-170); LDL Cholesterol,Calculated 205.6 mg/dL (0.0-131.0); Phosphorus 2.4 mg/dL (2.4-5.1); Potassium 3.8 mmol/L (3.5-5.5); Sodium 139 mmol/L (135-145); Total Bilirubin 0.5 mg/dL (0.3-1.2); Total Iron Binding Capacity 258 UG/DL (228-460); Total Protein 6.3 d/dL (6.2-8.2)
[2022-11-16 02:01] LABS: Prealbumin 14.1 mg/dL (18.0-42.0)
[2022-11-16 12:09] LABS: Zinc, Serum 68 ug/dL (60-130)
[2022-11-16 12:19] LABS: Angiotensin-1 Converting Enz. 20 U/L (8-52)
[2022-11-17 06:42] LABS: Vitamin A 27 ug/dL (38-106)
[2022-11-17 10:45] LABS: Vit B1(Thiamine) 80 ug/L (38-122)
== END ==
LOC: BARWHC3 12:17
PROVIDERS: ATTEND Surgery Plastic and Reconstructive Surgery
DX: E66.01 Morbid (severe) obesity due to excess calories (principal); D50.8 Other iron deficiency anemias; K90.89 Other intestinal malabsorption; E55.9 Vitamin D deficiency, unspecified; K74.1 Hepatic sclerosis; E89.1 Postprocedural hypoinsulinemia; N19 Unspecified kidney failure; T56.894A Toxic effect of other metals, undetermined, initial encounter; K50.90 Crohn's disease, unspecified, without complications; Z71.3 Dietary counseling and surveillance; Z68.39 Body mass index [BMI] 39.0-39.9, adult; Z88.2 Allergy status to sulfonamides
CPT/HCPCS: 80053; 80061; 82164; 82306; 82525; 82607; 82728; 82746; 83540; 83550; 83735; 83970; 84100; 84134; 84255; 84425; 84443; 84590; 84630; 85027; 85610; 85730; 97803; 99211

== ENCOUNTER → 2023-01-17 | Outpatient (CLI) | payer BC ==
[2023-01-17 13:14] VITALS: BP 107/62; PULSE 52; TEMP 97.3; BMI 36.2
--- NOTE | 2023-01-17 13:44 | P.BASOAP ---
Subjective Progress Note Date: 01/17/23 DATE OF SERVICE: 01/17/2023 CHIEF COMPLAINT: Status post sleeve gastrectomy HISTORY OF PRESENT ILLNESS: Jackelin Slater is a 47-year-old female status post sleeve gastrectomy, 10/02/2022. She is over 3 months postop. She is taking omeprazole for Humira, rheumatoid arthritic medications. She denies dysphagia or food stuck sensation. She is concerned for her arms redundant skin. She is taking multivitamin Flintstones. Her daily protein intake is 65 to 68 grams. She is doing Juice plus for nutrition. At height of 5 feet 5 inches, her ideal body weight is 149 pounds. She comes in 218 pounds from 232 pounds, 2 months ago. She has lost 18 pounds in 2 months. Her highest weight is 264 pounds, body mass index 44.1. Her current body mass index is 36.3. She is 69 pounds overweight. Lifetime percent excess weight loss 40%. Lifetime total weight loss 46 pounds. PHYSICAL EXAM: VITAL SIGNS: Height 5 foot 3.75 inches, weight 219 pounds. BMI 38.0 Vital Signs Temp 97.3 F L 01/17/23 13:06 Pulse 52 L 01/17/23 13:06 Resp BP 107/62 01/17/23 13:06 Pulse Ox FiO2 GENERAL: Well-developed in no acute distress. HEENT: No scleral icterus. Extraocular movements grossly intact. Hears conversational speech. No nasal drainage. NECK: Supple without lymphadenopathy. CHEST: Nonlabored respirations with equal bilateral excursions. CARDIOVASCULAR: Regular rate and regular rhythm. Distal 2+ pulses. ABDOMEN: Obese, soft, nontender, nondistended. MUSCULOSKELETAL: No clubbing, cyanosis. NEURO: No focal or lateralizing signs. Cranial nerves 2 through 12 grossly within normal limits. PSYCH: Appropriate affect. Alert and oriented to person, place and time. SKIN: Good skin turgor. Well perfused. ASSESSMENT: 1. Morbid obesity due to excess calories 2. Body mass index of 44.1 to 36.3 3. Osteoarthritis of the knees. 4. Osteoarthritis of the lower back. 5. Hypertensive heart disease. 6. Gastroesophageal reflux disease 7. Depressive disorder 8. Rheumatoid arthritis 9. Hyperlipidemia 10. Generalized anxiety disorder 11. Supraventricular tachycardia 12. Status post sleeve gastrectomy 13. Tobacco abuse disorder PLAN: 1. Recommend bariatric labs 2. Recommend tobacco and nicotine abstinence 3. Recommend adjustment of multivitamins pending results of blood work Objective - Vital Signs Vital signs: Vital Signs Temp 97.3 F L 01/17/23 13:06 Pulse 52 L 01/17/23 13:06 Resp BP 107/62 01/17/23 13:06 Pulse Ox FiO2 Intake & Output 01/16/23 01/17/23 01/17/23 18:59 06:59 18:59 Weight 98.883 kg Assessment/Plan Plan: Date: 01/17/23 Initial Weight: Initial BMI: Current Weight: 98.883 kg Current BMI: 36.2 Type of Surgery: Total Volume in Band: Previous Volume: Volume Removed: Volume Added: Band Size:
== END ==
LOC: BARWHC3 12:40
PROVIDERS: ATTEND Surgery Plastic and Reconstructive Surgery
DX: K21.9 Gastro-esophageal reflux disease without esophagitis (principal); E66.01 Morbid (severe) obesity due to excess calories; M17.0 Bilateral primary osteoarthritis of knee; M47.816 Spondylosis without myelopathy or radiculopathy, lumbar region; I11.9 Hypertensive heart disease without heart failure; F32.A Depression, unspecified; M06.9 Rheumatoid arthritis, unspecified; E78.5 Hyperlipidemia, unspecified; F41.1 Generalized anxiety disorder; I47.10 Supraventricular tachycardia, unspecified; Z98.84 Bariatric surgery status; Z72.0 Tobacco use; Z68.36 Body mass index [BMI] 36.0-36.9, adult; Z88.2 Allergy status to sulfonamides; Z79.899 Other long term (current) drug therapy
CPT/HCPCS: 97803; 99211

== ENCOUNTER → 2023-01-25 | Outpatient (CLI) | payer BC ==
[2023-01-25 09:59] LABS: Partial Thromboplastin Time 25.6 sec (22.0-30.0); Prothrombin Time 10.8 sec (10.0-12.5)
[2023-01-25 15:00] LABS: HGB 14.2 g/dL (12.0-15.0); MCH 28.8 pg (27.0-32.0); MCHC 32.3 g/dL (32.0-37.0); MCV 89.2 FL (80.0-97.0); Mean Platelet Volume 11.2 FL (9.5-12.2); NRBC Per 100 WBC 0 X 10*3/uL (0.00-0.01); Platelet Count 298 X 10*3/uL (140-440); RBC 4.93 X 10*6/uL (4.10-5.20)
[2023-01-25 15:50] LABS: Prealbumin 15.1 mg/dL (18.0-42.0)
[2023-01-25 16:12] LABS: % Iron Saturation 27.21 (12.00-45.00); ALT 19 U/L (8-44); AST 15 U/L (13-35); Albumin/Globulin Ratio 1.54 Ratio (1.60-3.17); Alkaline Phosphatase 62 U/L (41-126); BUN/Creat Ratio 16.67 Ratio (12.00-20.00); Calcium 9.5 mg/dL (8.7-10.3); Carbon Dioxide 24.9 mmol/L (21.6-31.8); Chloride 103 mmol/L (96-109); Chol/HDL Ratio 8.53 Ratio; Ferritin 60.9 ng/mL (10.0-291.0); Globulin 2.6 g/dL (1.6-3.3); Glucose 88 mg/dL (70-110); Iron 74 UG/DL (50-170); LDL Cholesterol,Calculated 265.8 mg/dL (0.0-131.0); Magnesium 2.2 mg/dL (1.5-2.4); Phosphorus 3.1 mg/dL (2.4-5.1); Potassium 4.5 mmol/L (3.5-5.5); Sodium 138 mmol/L (135-145); Total Bilirubin 0.6 mg/dL (0.3-1.2); Total Iron Binding Capacity 272 UG/DL (228-460); Total Protein 6.6 g/dL (6.2-8.2); VLDL Calculation 16.68 mg/dL (5.00-40.00)
[2023-01-26 12:04] LABS: Zinc, Serum 78 ug/dL (60-130)
== END | disposition home or self-care (01) ==
LOC: LABWHC1 08:34
PROVIDERS: ATTEND Surgery Plastic and Reconstructive Surgery
DX: E89.1 Postprocedural hypoinsulinemia (principal); E66.01 Morbid (severe) obesity due to excess calories; D50.8 Other iron deficiency anemias; E44.0 Moderate protein-calorie malnutrition; E44.1 Mild protein-calorie malnutrition; E45 Retarded development following protein-calorie malnutrition; E55.9 Vitamin D deficiency, unspecified; K74.1 Hepatic sclerosis; N19 Unspecified kidney failure; T56.894A Toxic effect of other metals, undetermined, initial encounter; K50.90 Crohn's disease, unspecified, without complications
CPT/HCPCS: 36415; 80053; 80061; 82306; 82525; 82607; 82728; 82746; 83036; 83540; 83550; 83735; 83970; 84100; 84134; 84255; 84425; 84443; 84590; 84630; 85027; 85610; 85730

== ENCOUNTER → 2023-04-11 | Outpatient (CLI) | payer BC ==
[2023-04-11 12:21] LABS: Partial Thromboplastin Time 24.8 sec (22.0-30.0); Prothrombin Time 10.7 sec (10.0-12.5)
[2023-04-11 17:38] LABS: HCT 42.2 % (37.2-46.3); MCH 29.5 pg (27.0-32.0); MCHC 33.2 g/dL (32.0-37.0); NRBC Per 100 WBC 0 X 10*3/uL (0.00-0.01); Platelet Count 301 X 10*3/uL (140-440); RBC 4.74 X 10*6/uL (4.10-5.20); WBC 6.09 X 10*3/uL (4.50-10.00)
[2023-04-11 22:45] LABS: Prealbumin 15.6 mg/dL (18.0-42.0)
[2023-04-11 23:07] LABS: % Iron Saturation 28.47 (12.00-45.00); ALT 19 U/L (8-44); AST 17 U/L (13-35); Albumin 4.2 g/dL (3.8-4.9); Albumin/Globulin Ratio 1.68 Ratio (1.60-3.17); Alkaline Phosphatase 58 U/L (41-126); Blood Urea Nitrogen 9.6 mg/dL (9.0-27.0); Calcium 9.7 mg/dL (8.7-10.3); Carbon Dioxide 24.4 mmol/L (21.6-31.8); Chloride 105 mmol/L (96-109); Chol/HDL Ratio 4.69 Ratio; Ferritin 52.8 ng/mL (10.0-291.0); Globulin 2.5 g/dL (1.6-3.3); Glucose 87 mg/dL (70-110); Iron 78 UG/DL (50-170); LDL Cholesterol,Calculated 145.2 mg/dL (0.0-131.0); Magnesium 2.3 mg/dL (1.5-2.4); Phosphorus 3.5 mg/dL (2.4-5.1); Potassium 4.3 mmol/L (3.5-5.5); Sodium 139 mmol/L (135-145); Total Bilirubin 0.5 mg/dL (0.3-1.2); Total Iron Binding Capacity 274 UG/DL (228-460); Total Protein 6.7 g/dL (6.2-8.2); VLDL Calculation 14.52 mg/dL (5.00-40.00)
[2023-04-12 11:36] LABS: Zinc, Serum 76 ug/dL (60-130)
[2023-04-13 06:03] LABS: Vitamin A 36 ug/dL (38-106)
[2023-04-13 06:22] LABS: Vit B1(Thiamine) 59 ug/L (38-122)
== END | disposition home or self-care (01) ==
LOC: LABWHC1 11:18
PROVIDERS: ATTEND Surgery Plastic and Reconstructive Surgery
DX: E66.01 Morbid (severe) obesity due to excess calories (principal); E44.0 Moderate protein-calorie malnutrition; E44.1 Mild protein-calorie malnutrition; E45 Retarded development following protein-calorie malnutrition; E55.9 Vitamin D deficiency, unspecified; K74.1 Hepatic sclerosis; N19 Unspecified kidney failure; T56.894A Toxic effect of other metals, undetermined, initial encounter; K50.90 Crohn's disease, unspecified, without complications; E46 Unspecified protein-calorie malnutrition; D50.8 Other iron deficiency anemias; K91.2 Postsurgical malabsorption, not elsewhere classified; E89.1 Postprocedural hypoinsulinemia
CPT/HCPCS: 36415; 80053; 80061; 82306; 82525; 82607; 82728; 82746; 83036; 83540; 83550; 83735; 83970; 84100; 84134; 84255; 84425; 84443; 84590; 84630; 85027; 85610; 85730

== ENCOUNTER → 2023-07-11 | Outpatient (CLI) | payer BC ==
[2023-07-11 13:14] VITALS: BP 90/58; PULSE 58; TEMP 97.4; BMI 31.2
--- NOTE | 2023-07-11 13:49 | P.BASOAP ---
Subjective Progress Note Date: 07/11/23 Patient reports occasional redness along the pannus.. She uses body spray to help with lesions. She confirms lower back pain attributed to her pannus as well as troubles with grooming. Her main weight goal is to get down to 170 pounds. She started golfing. No reports of heartburn reflux indigestion. Recommend statin powder in the interim. She is 9 months out. Also bariatric labs advised. No reflux and indigestion. Follow-up with erp engineer for hypotension. Patient denies dizziness or trouble standing due to hypertension. She takes her medications for SVT. She will follow-up with a erp engineer for adjustment of her medications. Objective - Vital Signs Vital signs: Vital Signs Temp 97.4 F L 07/11/23 13:11 Pulse 58 L 07/11/23 13:11 Resp BP 90/58 07/11/23 13:11 Pulse Ox FiO2 Intake & Output 07/10/23 07/11/23 07/11/23 18:59 06:59 18:59 Weight 85.275 kg Assessment/Plan Plan: Date: 07/11/23 Initial Weight: Initial BMI: Current Weight: 85.275 kg Current BMI: 31.2 Type of Surgery: Total Volume in Band: Previous Volume: Volume Removed: Volume Added: Band Size:
== END ==
LOC: BARWHC3 12:34
PROVIDERS: ATTEND Surgery Plastic and Reconstructive Surgery
DX: E66.01 Morbid (severe) obesity due to excess calories (principal); H16.429 Pannus (corneal), unspecified eye; M54.50 Low back pain, unspecified; I10 Essential (primary) hypertension; Z68.31 Body mass index [BMI] 31.0-31.9, adult; Z98.84 Bariatric surgery status; Z90.3 Acquired absence of stomach [part of]; Z88.2 Allergy status to sulfonamides; Z79.899 Other long term (current) drug therapy
CPT/HCPCS: 99211

== ENCOUNTER → 2023-08-27 | Outpatient (CLI) | payer BC ==
[2023-08-27 10:55] LABS: INR 0.9 (<1.2); Partial Thromboplastin Time 24.8 sec (22.0-30.0); Prothrombin Time 10.4 sec (10.0-12.5)
[2023-08-27 16:22] LABS: HGB 13.3 g/dL (12.0-15.0); MCH 28.4 pg (27.0-32.0); MCHC 31.7 g/dL (32.0-37.0); MCV 89.6 FL (80.0-97.0); Mean Platelet Volume 11.5 FL (9.5-12.2); NRBC Per 100 WBC 0 X 10*3/uL (0.00-0.01); Platelet Count 280 X 10*3/uL (140-440); RBC 4.69 X 10*6/uL (4.10-5.20); WBC 5.54 X 10*3/uL (4.50-10.00)
[2023-08-27 19:26] LABS: Prealbumin 18.8 mg/dL (18.0-42.0)
[2023-08-27 19:33] LABS: % Iron Saturation 32.03 (12.00-45.00); ALT 15 U/L (8-44); AST 15 U/L (13-35); Albumin 4.4 g/dL (3.8-4.9); Albumin/Globulin Ratio 1.76 Ratio (1.60-3.17); Alkaline Phosphatase 62 U/L (41-126); BUN/Creat Ratio 13.14 Ratio (12.00-20.00); Blood Urea Nitrogen 9.2 mg/dL (9.0-27.0); Calcium 9.5 mg/dL (8.7-10.3); Chloride 106 mmol/L (96-109); Chol/HDL Ratio 3.88 Ratio; Ferritin 79.1 ng/mL (10.0-291.0); Globulin 2.5 g/dL (1.6-3.3); Glucose 88 mg/dL (70-110); Iron 90 UG/DL (50-170); LDL Cholesterol,Calculated 149.4 mg/dL (0.0-131.0); Magnesium 2.2 mg/dL (1.5-2.4); Potassium 4.7 mmol/L (3.5-5.5); Sodium 141 mmol/L (135-145); Total Bilirubin 0.5 mg/dL (0.3-1.2); Total Iron Binding Capacity 281 UG/DL (228-460); Total Protein 6.9 g/dL (6.2-8.2); VLDL Calculation 13.12 mg/dL (5.00-40.00)
[2023-08-28 13:20] LABS: Zinc, Serum 82 ug/dL (60-130)
[2023-08-29 12:09] LABS: Vitamin A 39 ug/dL (38-106)
== END | disposition home or self-care (01) ==
LOC: LABWHC1 09:04
PROVIDERS: ATTEND Surgery Plastic and Reconstructive Surgery
DX: E55.9 Vitamin D deficiency, unspecified (principal); E89.1 Postprocedural hypoinsulinemia; D50.8 Other iron deficiency anemias; E44.0 Moderate protein-calorie malnutrition; K74.1 Hepatic sclerosis; E66.01 Morbid (severe) obesity due to excess calories; E44.1 Mild protein-calorie malnutrition; E45 Retarded development following protein-calorie malnutrition; N19 Unspecified kidney failure; T56.894A Toxic effect of other metals, undetermined, initial encounter; K50.90 Crohn's disease, unspecified, without complications
CPT/HCPCS: 36415; 80053; 80061; 82306; 82525; 82607; 82728; 82746; 83036; 83540; 83550; 83735; 83970; 84100; 84134; 84255; 84425; 84443; 84590; 84630; 85027; 85610; 85730

== ENCOUNTER → 2024-06-25 | Outpatient (CLI) | payer BC ==
[2024-06-25 13:12] VITALS: BP 118/75; PULSE 64; RESP 16; TEMP 98.1; BMI 28.4
--- NOTE | 2024-06-25 13:51 | P.BASOAP ---
Subjective Progress Note Date: 06/25/24 She comes in with weight loss. Last seen September 2023. She had adverse reaction to antbiotics with reflux. She is still on protein shake. She had sinus infection. She is getting 80 grams. She does cottage cheese. She has severe constipation. 3 stool softeners, 90 oz. 4g plan. Arazo fish oil and magnesium. Increase water 128 oz. 50 grams of carb. Pineapple for inflammation. Labs. Objective - Vital Signs Vital signs: Vital Signs Temp 98.1 F 06/25/24 13:08 Pulse 64 06/25/24 13:08 Resp 16 06/25/24 13:08 BP 118/75 06/25/24 13:08 Pulse Ox FiO2 Intake & Output 06/24/24 06/25/24 06/25/24 18:59 06:59 18:59 Weight 77.564 kg Assessment/Plan Plan: Date: 06/25/24 Initial Weight: Initial BMI: Current Weight: 77.564 kg Current BMI: 28.4 Type of Surgery: Total Volume in Band: Previous Volume: Volume Removed: Volume Added: Band Size:
[2024-06-25 14:56] LABS: INR 0.9 (<1.2); Partial Thromboplastin Time 23.8 sec (22.0-30.0); Prothrombin Time 10.3 sec (10.0-12.5)
[2024-06-25 18:13] LABS: HCT 38.2 % (37.2-46.3); MCH 28.8 pg (27.0-32.0); MCHC 31.4 g/dL (32.0-37.0); MCV 91.8 FL (80.0-97.0); Mean Platelet Volume 11.1 FL (9.5-12.2); NRBC Per 100 WBC 0 X 10*3/uL (0.00-0.01); Platelet Count 284 X 10*3/uL (140-440); RBC 4.16 X 10*6/uL (4.10-5.20); WBC 7.66 X 10*3/uL (4.50-10.00)
[2024-06-25 20:24] LABS: % Iron Saturation 18.35 (12.00-45.00); ALT 27 U/L (8-44); AST 22 U/L (13-35); Albumin/Globulin Ratio 1.74 Ratio (1.60-3.17); Alkaline Phosphatase 56 U/L (41-126); BUN/Creat Ratio 26.67 Ratio (12.00-20.00); Calcium 9.3 mg/dL (8.7-10.3); Carbon Dioxide 24.5 mmol/L (21.6-31.8); Chloride 105 mmol/L (96-109); Ferritin 68.4 ng/mL (10.0-291.0); Globulin 2.3 g/dL (1.6-3.3); Glucose 82 mg/dL (70-110); Iron 49 UG/DL (50-170); Magnesium 2.2 mg/dL (1.5-2.4); Phosphorus 3.3 mg/dL (2.4-5.1); Potassium 4.1 mmol/L (3.5-5.5); Sodium 139 mmol/L (135-145); Total Bilirubin 0.4 mg/dL (0.3-1.2); Total Iron Binding Capacity 267 UG/DL (228-460); Total Protein 6.3 g/dL (6.2-8.2)
[2024-06-25 22:16] LABS: Prealbumin 19.4 mg/dL (18.0-42.0)
[2024-06-26 12:21] LABS: Zinc, Serum 48 ug/dL (60-130)
[2024-06-27 06:57] LABS: Vitamin A 51 ug/dL (38-106)
== END ==
LOC: BARWHC3 12:19
PROVIDERS: ATTEND Surgery Plastic and Reconstructive Surgery
DX: E66.01 Morbid (severe) obesity due to excess calories (principal); D50.8 Other iron deficiency anemias; K91.2 Postsurgical malabsorption, not elsewhere classified; E44.1 Mild protein-calorie malnutrition; E45 Retarded development following protein-calorie malnutrition; E55.9 Vitamin D deficiency, unspecified; K74.1 Hepatic sclerosis; N19 Unspecified kidney failure; T56.894A Toxic effect of other metals, undetermined, initial encounter; Z68.28 Body mass index [BMI] 28.0-28.9, adult; Z88.2 Allergy status to sulfonamides
CPT/HCPCS: 80053; 80061; 82306; 82525; 82607; 82728; 82746; 83036; 83540; 83550; 83735; 83970; 84100; 84134; 84255; 84425; 84443; 84590; 84630; 85027; 85610; 85730; 99211